=== PATIENT | female | born 1970 | race Hispanic/Latino ===

== ENCOUNTER 2016-06-17 13:15 | Outpatient (CLI) | payer BC ==
--- NOTE | 2016-06-18 09:04 | Cat Scan Report ---
CT ABDOMEN AND PELVIS WITHOUT CONTRAST: HISTORY: Abdominal pain. COMPARISON: 12/31/15. FINDINGS: Previous ventral wall hernia repair is again noted. There is a recurrent hernia along the inferior border of the mesh in the region of the umbilicus. The defect has a 4.1 cm neck and contains fat. The hernia sac measures approximately 5 x 7 cm. No bowel loops or inflammatory changes. Please correlate with the images. Normal liver, biliary system, pancreas, spleen, kidneys, adrenal glands, aorta, bowel loops, appendix, uterus, adnexa and bladder. Essure devices are noted. There is no evidence for ascites, adenopathy or acute inflammation. Heart size is normal. The visualized lung bases are clear. IMPRESSION: Recurrent hernia along the inferior border of the previous ventral wall repair. Please correlate with the images.
== END 2016-06-17 13:16 | disposition home or self-care (01) ==
LOC: CT 13:15
PROVIDERS: ATTEND Surgery
DX: K42.9 Umbilical hernia without obstruction or gangrene (principal); Z97.5 Presence of (intrauterine) contraceptive device
CPT/HCPCS: 74176

== ENCOUNTER 2016-09-26 06:10 | Day surgery (SDC) | payer BC ==
[~2016-09-26 06:10] MED LIST: ceFAZolin 2 GM in NACL 0.9% 100 ML IV NR
--- NOTE | 2016-09-26 06:38 | Anesthesia Day of Surgery ---
Anesthesia Day of Surgery - Day of Surgery Patient Examined: Yes Patient H&P Reviewed: Yes Patient is NPO: Yes
--- NOTE | 2016-09-26 06:38 | Anesthesia Consultation ---
Anesthesia Consult and Med Hx Date of service: 09/26/16 - Airway Anesthetic Teeth Evaluation: Good ROM Head & Neck: Adequate Mental/Hyoid Distance: Adequate Mallampati Class: Class II Intubation Access Assessment: Probably Good - Pulmonary Exam CTA: Yes - Cardiac Exam Cardiac Exam: RRR - Pre-Operative Health Status ASA Pre-Surgery Classification: ASA1 Proposed Anesthetic Plan: General - Pulmonary Hx Smoking: No Hx Sleep Apnea: No - Other Systems Hx Cancer: No
[2016-09-26] MEDS ORDERED: PEPCID PO NR (07:00)
[2016-09-26] MEDS ORDERED: LACTATED RINGERS 1,000 ML IV SCH (07:00)
[2016-09-26] MEDS ORDERED: VERSED IV NR (07:00)
[2016-09-26] MEDS ORDERED: ZOFRAN IV PRN (07:02)
[2016-09-26] MEDS ORDERED: NORCO 5/325 PO PRN (07:02)
[2016-09-26] MEDS ORDERED: MARCAINE 0.25% INFILTRATI ONE ×3 (07:28→08:20)
[2016-09-26] MEDS ORDERED: XYLOCAINE MPF 2% ONE (07:41)
[2016-09-26] MEDS ORDERED: ZEMURON IV ONE (07:41)
[2016-09-26] MEDS ORDERED: DIPRIVAN 10 MG/ML IV ONE (07:42)
[2016-09-26] MEDS ORDERED: SUBLIMAZE ONE (07:42)
[2016-09-26] MEDS ORDERED: DECADRON ONE (07:47)
[2016-09-26] MEDS ORDERED: ZOFRAN ONE ×2 (07:47→11:37)
[2016-09-26] MEDS ORDERED: ANCEF/STERILE WATER 2 GM/20 ML IV NR (08:00)
[2016-09-26] MEDS ORDERED: NACL 0.9% IR ONE (08:20)
[2016-09-26] MEDS ORDERED: DILAUDID ONE (08:28)
[2016-09-26] MEDS ORDERED: TORADOL ONE (10:03)
[2016-09-26] MEDS ORDERED: NACL 0.9% 1000 ML 1,000 ML ONE (10:23)
--- NOTE | 2016-09-26 10:25 | Post Operative Note ---
Pre-op diagnosis: Recurrent ventral hernia with inacr. omentum Post-op diagnosis: same Findings: Rec ventral hernia,omental adhesions + Procedure: Laparoscopic mesh repair rec incarc. ventral hernia Anesthesia: GETA Surgeon: LINDA MAIN Estimated blood loss: minimal Pathology: list (expalnted mesh) Specimen disposition: to lab Condition: stable Disposition: PACU
--- NOTE | 2016-09-26 10:28 | Discharge Summary ---
Short Stay Discharge Plan Weight Bearing Status: Full Weight Bearing Diet: regular Wound: keep clean and dry (remove dressings in 09/28 - abd binder at all times) Follow up with: BETTYE MONTALVO MD [Primary Care Provider] - 7 Days Prescriptions: Ondansetron [Zofran TAB] 4 mg PO Q8HR PRN #20 tablet PRN Reason: Nausea oxyCODONE /ACETAMINOPHEN [Percocet 5/325] 1 tab PO Q4HR PRN #30 tab PRN Reason: Pain, Moderate (4-6) traMADol [Ultram 50 MG tab] 50 mg PO Q4HR PRN #20 tablet PRN Reason: Pain
[2016-09-26] MEDS ORDERED: NARCAN 0.4 MG/1 ML ONE (10:49)
[2016-09-26] MEDS ORDERED: ROBINUL ONE ×2 (10:51→10:54)
[2016-09-26] MEDS ORDERED: NEOSTIGMINE ONE (10:54)
--- NOTE | 2016-09-26 11:03 | Post Anesthesia Evaluation ---
- Post Anesthesia Evaluation Patient Participated: Yes Airway Patent: Yes Stable Respiratory Function: Yes Temp > 96.8F: Yes Pain Manageable: Yes Adequeate Hydration: Yes Anesthesia Complications: No Block Receding Appropriately: Not Applicable
[2016-09-26] MEDS: DILAUDID IV PRN ×3 (11:40→12:00)
--- NOTE | 2016-09-26 13:17 | Operative Report ---
PREOPERATIVE DIAGNOSIS: Recurrent incarcerated ventral/incisional hernia with incarcerated omentum. POSTOPERATIVE DIAGNOSIS: Recurrent incarcerated ventral/incisional hernia with incarcerated omentum. OPERATIVE PROCEDURE: Laparoscopic lysis of omental adhesions; partial explantation of the old mesh; and mesh repair of recurrent ventral hernia. ANESTHESIA: General endotracheal. SURGEON: Kendall Valiente M.D. BLOOD LOSS: Minimal. SPECIMENS: Part of explanted mesh. COMPLICATIONS: None. INDICATIONS: A 46-year-old female patient with a BMI of 34, underwent laparoscopic mesh repair of ventral hernia by pa in 11/2015. She started noticing signs of discomfort and swelling 3-4 months ago. There is clinical evidence of recurrence confirmed by a CT scan with omentum in it. She was brought in for laparoscopy and repair of the recurrent hernia. FINDINGS: The previously placed proceed mesh has unraveled at the lower margin of the hernia repair and the recurrence was noted at the lower end, the defect measuring 3 cm x 3.5 cm. Part of the omentum as herniated into it, but the omentum was viable. Superiorly broad band of omentum was adherent to the mesh. No bowel adhesions were noted to the mesh. Visualized part of the liver and stomach and small intestine and colon appeared normal. No inguinal hernia evident. DESCRIPTION OF PROCEDURE: After satisfactory induction of general endotracheal anesthesia, abdomen was prepped and draped. Left upper quadrant incision was made through the scar of previous trocar placement and a Veress needle was inserted in the peritoneal cavity. After adequate carbon dioxide insufflation up to 15 mmHg, an 11 mm trocar was inserted. Through this, a 5 mm 30-degree angle scope was placed and under direct visualization, a left mid lateral in the left lower quadrant 5 mm ports were placed. Camera was changed to the central port and the omental adhesions were taken down using Harmonic for hemostasis. The incarcerated omentum was released as well. Care was taken not to cause any injury to bowel loops. All the omental adhesions were taken down. These were carefully inspected and hemostasis was quite adequate. Minimal blood clots were suctioned out. Part of the mesh was protruding into the defect was from the fascia and this part of the mesh was removed using an EndoCatch bag. The defect was closed with 3 interrupted 0 Vicryl sutures using an Endoclose needle through a small incision above the umbilicus. This approximated the defect as much as possible and new mesh that was a Ventralight. A 6 inches x 8 inches mesh was used for this purpose. At four corners 0 Vicryl sutures were placed, this was placed on the polypropylene aspect of the mesh. The mesh was moistened and inserted through the 11 mm trocar. Suture passer needle was inserted at the previously identified sites and the anterior abdominal wall and the Vicryl sutures were pulled up and the mesh was securely tied. Then, the mesh was anchored to the fascia using an outer row and inner row of CapSure type of tackers. There was no redundancy or tension on the mesh and hemostasis was quite adequate. Desufflation during the placement of the mesh, the intra-abdominal pressure was lowered to 10. Desufflation was done. All the trocars were removed under direct visualization. The supraumbilical incision and the trocar sites incisions were all closed with Monocryl sutures. The other incisions were approximated with Steri-Strips. Bulky dressings were placed over the umbilical area and an abdominal binder was placed. There was minimal blood loss. She tolerated the procedure well and was transferred to postanesthesia care unit in satisfactory condition. JOB# [id number] ARMINDA/ALLIE
[2016-09-26] MEDS ORDERED: PERCOCET 5/325 PO PRN (14:04)
[2016-09-26 19:06] VITALS: BP 138/78
== END 2016-09-26 14:45 | disposition home or self-care (01) ==
LOC: OR 06:10
PROVIDERS: ATTEND Surgery
DX: K43.0 Incisional hernia with obstruction, without gangrene (principal); K66.0 Peritoneal adhesions (postprocedural) (postinfection); Z87.442 Personal history of urinary calculi; Z98.890 Other specified postprocedural states; Z88.8 Allergy status to other drugs, medicaments and biological substances; Z91.040 Latex allergy status
CPT/HCPCS: 49657; 81025; 88305; C1781; J0690; J1100; J1170; J1885; J2250; J2310; J2405; J2704; J3010; J7030; J7120; J2710

== ENCOUNTER 2019-05-18 15:16 | Outpatient (CLI) | payer BC ==
--- NOTE | 2019-05-18 16:15 | Mammography Report ---
DIGITAL SCREENING MAMMOGRAM WITH CAD, 05/18/2019 INDICATION: Routine screening mammography. TECHNIQUE: Digital bilateral 2D mammography was obtained in the craniocaudal and mediolateral obliq ue projections. This examination was interpreted with the benefit of Computer-Aided Detection analysi s. COMPARISON: FINDINGS: Breast Density: There is no evidence of dominant mass, suspicious calcifications or architectural distortion in eithe r breast. IMPRESSION: Follow up recommendation: Routine yearly A "normal" or negative report should not discourage follow up or biopsy of a clinically significant f inding. A written summary of these findings will be mailed to the patient. The patient will be entered into a mammography reporting system which will generate a reminder letter for the patient's next appointmen t at the appropriate interval. The [employer] recommends yearly mammograms starting at age 40 and continuing as l abilio as a woman is in good health. Breast MRI is recommended for women with an approximate 20-25% or greater lifetime risk of breast cancer, including women with a strong family history of breast or ova kirby cancer or who have been treated for Hodgkin's disease. DIGITAL SCREENING MAMMOGRAM WITH CAD, 05/18/2019 INDICATION: Routine screening mammography. TECHNIQUE: Digital bilateral 2D mammography was obtained in the craniocaudal and mediolateral obliq ue projections. This examination was interpreted with the benefit of Computer-Aided Detection analysi s. COMPARISON: 03/13/2015 FINDINGS: Breast Density: The breasts are almost entirely fatty. There is no evidence of dominant mass, suspicious calcifications or architectural distortion in eithe r breast. IMPRESSION: No mammographic evidence of malignancy. Follow up recommendation: Routine yearly BI-RADS Category 1: Negative. A "normal" or negative report should not discourage follow up or biopsy of a clinically significant f inding. A written summary of these findings will be mailed to the patient. The patient will be entered into a mammography reporting system which will generate a reminder letter for the patient's next appointmen t at the appropriate interval. The [employer] recommends yearly mammograms starting at age 40 and continuing as l abilio as a woman is in good health. Breast MRI is recommended for women with an approximate 20-25% or greater lifetime risk of breast cancer, including women with a strong family history of breast or ova kirby cancer or who have been treated for Hodgkin's disease. Signer Name: Hill Lofton MD Signed: 05/18/2019 4:10 PM Workstation Name: [id number]
== END 2019-05-18 15:17 | disposition home or self-care (01) ==
LOC: MAMMO 15:16
PROVIDERS: ATTEND Obstetrics & Gynecology
DX: Z12.31 Encounter for screening mammogram for malignant neoplasm of breast (principal)
CPT/HCPCS: 77067

== ENCOUNTER 2020-02-20 07:04 | Outpatient (CLI) | payer BC ==
--- NOTE | 2020-02-20 09:24 | Ultrasound Report ---
ULTRASOUND ABDOMEN, COMPLETE INDICATION: ABDOMINAL PAIN. COMPARISON: CT abdomen pelvis 06/17/2016. FINDINGS: Pancreas: No significant abnormality. Abdominal Aorta: No significant abnormality. IVC: No significant abnormality. Liver: The liver measures 16.5 cm in length. No significant abnormality. Normal hepatopedal blood fl ow in the main portal vein. Gallbladder: No significant abnormality. Bile ducts: No significant abnormality. Common bile duct measures 3.9 mm. Kidneys: Right: 9.9 cm in length. Mild diffuse cortical thinning is noted throughout the right kidn ey. No focal lesion or hydronephrosis. Left: 10.6 cm in length. No significant abnormality. Spleen: The spleen is borderline in size measuring 13.7 cm in length.. Free fluid: None. Additional Findings: None. IMPRESSION: No acute abnormality. Mild cortical thinning in the right kidney. Borderline splenomegaly.. ULTRASOUND PELVIS COMPLETE INDICATION / CLINICAL INFORMATION: ABDOMINAL PAIN. TECHNIQUE: Transabdominal. Duplex Color Doppler used: Yes. COMPARISON: CT abdomen pelvis to 717 FINDINGS: UTERUS: Anteverted - Appearance (if present): No significant abnormality. - Size in cm (if present): 8.1 x 4.1 x 5.4. - Endometrial Complex (if present): No significant abnormality.. Thickness in cm (if measured) = 1.4 - Mass lesions: None. - Additional findings: None. RIGHT ADNEXA: No significant ovarian cyst or mass. Normal color Doppler blood flow. LEFT ADNEXA: No significant ovarian cyst or mass. Normal color Doppler blood flow. URINARY BLADDER: No significant abnormality. FREE FLUID: None. ADDITIONAL FINDINGS: The technologist notes a coil in the right fallopian tubule near the uterine fun dus. Essure device IMPRESSION: No significant abnormality. Signer Name: Otoniel Bernstein Jr, MD Signed: 02/20/2020 9:19 AM Workstation Name: [id number]
== END 2020-02-20 07:05 | disposition home or self-care (01) ==
LOC: US 07:04
PROVIDERS: ATTEND Nurse Practitioner
DX: N28.89 Other specified disorders of kidney and ureter (principal)
CPT/HCPCS: 76700; 76856

== ENCOUNTER 2021-08-06 15:25 | Emergency (ER) | payer OTHER, BC ==
[2021-08-06 15:55] VITALS: BP 143/79
[2021-08-06] MEDS ORDERED: TETANUS,DIPH,PERTUSS(ACELL) VACCINE 0.5 ML SYRINGE IM ONE (16:12)
--- NOTE | 2021-08-06 16:12 | Emergency Department Report ---
ED General Adult HPI - General Chief complaint: Medical Clearance Stated complaint: WORK INJURY PUI?: No Time Seen by Provider: 08/06/21 15:59 Source: patient, RN notes reviewed, old records reviewed Mode of arrival: Ambulatory Limitations: No Limitations - History of Present Illness Initial comments: The patient is a pleasant 50-year-old female who is right-hand dominant, who states that she is not , presenting to the ER today with a complaint of accidental scalpel injury to the left lateral superficial aspect of her hand. Patient works in the cardiac catheterization lab, and believes that she was accidentally stuck with a scalpel, uncertain if there were any blood products on the scalpel. It is not known if the source patient is HIV positive, or hepatitis positive. The patient is not up-to-date on tetanus vaccination. The patient is referred to the emergency room for sharps related injury. The patient states that she washed her hands very thoroughly with soap and water for at least 10 minutes. She denies additional injuries and complaints. Patient specifically reports that she was not stabbed or wounded by a hollow needle. She thinks the blade is an 11 blade but is not sure -: This afternoon Location: left, upper extremity Severity scale (0 -10): 0 Improves with: none Worsens with: none Associated Symptoms: denies other symptoms - Related Data Home Medications Medication Instructions Recorded Confirmed Last Taken Ibuprofen [Motrin 800 MG tab] 800 mg PO Q8HR PRN 11/02/15 09/17/16 2 Weeks Ago ~11/06/15 Acetaminophen [Acetaminophen TAB] 325 mg PO Q6HR PRN 11/20/15 09/17/16 11/13/15 Previous Rx's Medication Instructions Recorded Last Taken Type Ondansetron [Zofran TAB] 4 mg PO Q8HR PRN #20 tablet 09/26/16 Unknown Rx oxyCODONE /ACETAMINOPHEN [Percocet 1 tab PO Q4HR PRN #30 tab 09/26/16 Unknown Rx 5/325] traMADoL [Ultram 50 MG tab] 50 mg PO Q4HR PRN #20 tablet 09/26/16 Unknown Rx Allergies Allergy/AdvReac Type Severity Reaction Status Date / Time latex Allergy Itching Verified 08/06/21 15:28 metoclopramide HCl AdvReac Unknown Verified 08/06/21 15:28 [From Reglan] ED Review of Systems ROS: Stated complaint: WORK INJURY Other details as noted in HPI Constitutional: see HPI Eyes: as per HPI ENT: as per HPI Respiratory: see HPI Cardiovascular: as per HPI Gastrointestinal: as per HPI Genitourinary: as per HPI Musculoskeletal: as per HPI Skin: as per HPI, other (Superficial injury to left lateral hand) ED Past Medical Hx - Past Medical History Hx Kidney Stones: Yes Hx HIV: No - Social History Smoking Status: Never Smoker - Medications Home Medications: Home Medications Medication Instructions Recorded Confirmed Last Taken Type Ibuprofen [Motrin 800 MG tab] 800 mg PO Q8HR PRN 11/02/15 09/17/16 2 Weeks Ago History ~11/06/15 Acetaminophen [Acetaminophen TAB] 325 mg PO Q6HR PRN 11/20/15 09/17/16 11/13/15 History Ondansetron [Zofran TAB] 4 mg PO Q8HR PRN #20 tablet 09/26/16 Unknown Rx oxyCODONE /ACETAMINOPHEN [Percocet 1 tab PO Q4HR PRN #30 tab 09/26/16 Unknown Rx 5/325] traMADoL [Ultram 50 MG tab] 50 mg PO Q4HR PRN #20 tablet 09/26/16 Unknown Rx ED Physical Exam - General Limitations: No Limitations General appearance: alert, in no apparent distress - Head Head exam: Present: atraumatic, normocephalic - Eye Eye exam: Present: normal appearance, EOMI. Absent: nystagmus - ENT ENT exam: Present: normal exam, normal orophraynx, mucous membranes moist, normal external ear exam - Neck Neck exam: Present: normal inspection, full ROM. Absent: tenderness, mening ismus - Respiratory Respiratory exam: Present: normal lung sounds bilaterally. Absent: respiratory distress, wheezes, rales, rhonchi, stridor, decreased breath sounds - Cardiovascular Cardiovascular Exam: Present: regular rate, normal rhythm, normal heart sounds. Absent: bradycardia, tachycardia, irregular rhythm, systolic murmur, diastolic murmur, rubs, gallop - GI/Abdominal GI/Abdominal exam: Present: soft. Absent: distended, tenderness, guarding, rebound, rigid, pulsatile mass - Extremities Exam Extremities exam: Present: full ROM, other (2+ pulses noted to the bilateral upper extremities. There is no long bony tenderness. The muscular compartments are soft). Absent: normal inspection (There is a superficial punctate wounds noted to the left lateral hand.) - Back Exam Back exam: Present: normal inspection, full ROM. Absent: tenderness, CVA tenderness (R), CVA tenderness (L), paraspinal tenderness, vertebral tenderness - Neurological Exam Neurological exam: Present: alert, other (There is no facial droop. The tongue is midline. EOMI. 5-5 strength in 4 extremities) - Psychiatric Psychiatric exam: Present: normal affect, normal mood - Skin Skin exam: Present: warm, abrasion ED Course Vital Signs 08/06/21 15:55 Temperature 98.0 F Pulse Rate 89 Respiratory 16 Rate Blood Pressure 143/79 [Right] O2 Sat by Pulse 99 Oximetry - Reevaluation(s) Reevaluation #1: 08/06/21 18:56 Rapid HIV and rapid hepatitis panels negative for source patient's ([id number]). Patient endorses readiness for discharge. Return precautions reviewed. All questions answered ED Medical Decision Making - Lab Data Vital Signs 08/06/21 15:55 Temperature 98.0 F Pulse Rate 89 Respiratory 16 Rate Blood Pressure 143/79 [Right] O2 Sat by Pulse 99 Oximetry - Medical Decision Making Differential diagnosis, including but not limited to: Superficial left hand abrasion, work-related injury, encounter for medical screening examination Assessment and plan: 50-year-old female presenting with work-related scalpel injury to left lateral hand. This is a low risk wound, as she was not punctured with a hollow needle, she washed her arm and hand very thoroughly with thorough soap and water, and there is no evidence of vascular injury at this time. I advised the patient that this is a low risk injury in terms of risk of acquisition of blood-borne diseases. I did offer the patient initiation of postexposure prophylaxis, through shared decision making, she elects to forego postexposure prophylaxis which I think is reasonable. Inpatient team have coordinated acquisition of rapid diagnostics on source patient, including rapid hepatitis and HIV panels. Patient is electing to wait in the emergency room pending results of these panels. I have updated the patient. Critical care attestation.: If time is entered above; I have spent that time in minutes in the direct care of this critically ill patient, excluding procedure time. ED Disposition Clinical Impression: Encounter for medical screening examination Puncture wound of left hand Qualifiers: Encounter type: initial encounter Foreign body presence: without foreign body Qualified Code(s): S61.432A - Puncture wound without foreign body of left hand, initial encounter Disposition: 01 HOME / SELF CARE / HOMELESS Is pt being admited?: No Does the pt Need Aspirin: No Condition: Good Instructions: Stab Wound, Wound Care, Adult Additional Instructions: Please continue local wound care. Please make certain to follow-up with medical records department to ascertain HIV and hepatitis status on source patient. Patient has received a tetanus vaccination here in the emergency room. Please return to the emergency room right away with new pain, worsened pain, migration of pain, projectile vomiting, change in mental status, confusion, inability tolerate liquid feeds, new, worsened or different symptoms not present on the initial emergency room evaluation Referrals: [facility] [Provider Group] - 3-5 Days
== END 2021-08-06 19:30 | disposition home or self-care (01) ==
LOC: ED 15:25
DX: S61.432A Puncture wound without foreign body of left hand, initial encounter (principal); N20.0 Calculus of kidney; Z91.040 Latex allergy status; Z91.09 Other allergy status, other than to drugs and biological substances; W26.8XXA Contact with other sharp object(s), not elsewhere classified, initial encounter; Y93.89 Activity, other specified; Y92.89 Other specified places as the place of occurrence of the external cause; Y99.0 Civilian activity done for income or pay
CPT/HCPCS: 90471; 90715; 99282

== ENCOUNTER 2021-08-20 12:20 | Outpatient (CLI) | payer BC ==
[2021-08-20 13:13] LABS: Hematocrit 37.8 % (30.3-42.9); Hemoglobin 12.6 gm/dl (10.1-14.3); Mean Corpuscular HGB Conc 33 % (30-34); Mean Corpuscular Volume 86 fl (79-97); Platelet Count 337 K/mm3 (140-440); Red Blood Count 4.39 M/mm3 (3.65-5.03); Red Cell Distribution Width 14.5 % (13.2-15.2)
[2021-08-20 13:24] LABS: Alanine Aminotransferase 13 units/L (7-56); Albumin 4.3 g/dL (3.9-5); Blood Urea Nitrogen 10 mg/dL (7-17); Calcium 9.5 mg/dL (8.4-10.2); Hemolysis Index 6
[2021-08-20 13:29] LABS: BUN/Creatinine Ratio 14
== END 2021-08-20 12:21 | disposition home or self-care (01) ==
LOC: LAB 12:20
PROVIDERS: ATTEND Obstetrics & Gynecology
DX: Z13.0 Encounter for screening for diseases of the blood and blood-forming organs and certain disorders involving the immune mechanism (principal); Z13.29 Encounter for screening for other suspected endocrine disorder; Z13.1 Encounter for screening for diabetes mellitus
CPT/HCPCS: 36415; 80053; 82607; 82747; 83036; 84436; 84443; 84480; 85027

== ENCOUNTER 2021-10-02 07:20 | Outpatient (CLI) | payer BC ==
[2021-10-02 08:04] LABS: Basophils # (Auto) 0.1 K/mm3 (0.0-0.1); Basophils % (Auto) 0.7 % (0.0-1.8); Eosinophils # (Auto) 0.1 K/mm3 (0.0-0.4); Eosinophils % (Auto) 1.7 % (0.0-4.3); Hematocrit 39.1 % (30.3-42.9); Hemoglobin 12.8 gm/dl (10.1-14.3); Lymphocytes # (Auto) 1.4 K/mm3 (1.2-5.4); Lymphocytes % (Auto) 18.9 % (13.4-35.0); Mean Corpuscular HGB Conc 33 % (30-34); Mean Corpuscular Volume 85 fl (79-97); Monocytes # (Auto) 0.5 K/mm3 (0.0-0.8); Monocytes % (Auto) 6.8 % (0.0-7.3); Platelet Count 339 K/mm3 (140-440); Red Cell Distribution Width 14.6 % (13.2-15.2)
--- NOTE | 2021-10-02 08:12 | Cat Scan Report ---
CT head/brain wo con INDICATION: HEADACHE UPON AWAKENING. TECHNIQUE: All CT scans at this location are performed using CT dose reduction for ALARA by means of automated e xposure control. COMPARISON: None available. FINDINGS: There is no evidence of hemorrhage, hydrocephalus, brain edema, or mass effect/mass lesion. There is overall normal brain formation and brain volume for the patient's age. Ventricular and cisternal/sulc al size is normal for age. The included paranasal sinuses and mastoid air cells are clear. The orbits appear unremarkable. IMPRESSION: 1. No acute findings. Signer Name: Salomón Larson MD Signed: 10/02/2021 8:08 AM Workstation Name: [id number]
[2021-10-02 08:24] LABS: Erythrocyte Sedimentation Rate 41 mm/Hr (0-20)
[2021-10-02 08:26] LABS: Alanine Aminotransferase 13 units/L (7-56); Albumin 4.3 g/dL (3.9-5); Blood Urea Nitrogen 17 mg/dL (7-17); Calcium 9.4 mg/dL (8.4-10.2); Hemolysis Index 8
[2021-10-02 08:30] LABS: BUN/Creatinine Ratio 28
== END 2021-10-02 07:21 | disposition home or self-care (01) ==
LOC: CT 07:20
PROVIDERS: ATTEND Internal Medicine
DX: G44.201 Tension-type headache, unspecified, intractable (principal)
CPT/HCPCS: 36415; 70450; 80053; 85025; 85652; 86140

== ENCOUNTER 2021-10-08 05:57 | Day surgery (SDC) | payer BC ==
[2021-10-08] MEDS ORDERED: ceFAZolin/STERILE WATER 2 GM/20 ML SYRINGE IV NR (06:00)
[2021-10-08] MEDS ORDERED: LACTATED RINGERS 1,000 ML ONE (06:10)
[2021-10-08] MEDS ORDERED: BACTERIOSTATIC SODIUM CHLORIDE 0.9% 30 ML VIAL INFILTRATI ONE (07:08)
[2021-10-08] MEDS ORDERED: LIDOCAINE MPF (2%) 20 MG/1 ML VIAL 5 ML ONE (07:16)
[2021-10-08] MEDS ORDERED: ONDANSETRON 4 MG/2 ML INJ ONE (07:16)
[2021-10-08] MEDS ORDERED: propofoL 200 MG/20 ML VIAL IV ONE ×3 (07:17→08:56)
[2021-10-08] MEDS ORDERED: fentaNYL 100 MCG/2 ML INJ ONE (07:17)
[2021-10-08] MEDS ORDERED: SODIUM BICARBONATE 2 MEQ/2 ML SYRINGE ONE (07:26)
[2021-10-08] MEDS ORDERED: LIDOCAINE (1%) 10 MG/1 ML VIAL 20 ML MDV ONE (07:26)
[2021-10-08] MEDS ORDERED: BUPIVACAINE/PF (0.5%) 5 MG/1 ML 10 ML VIAL INFILTRATI ONE ×3 (07:26→08:43)
--- NOTE | 2021-10-08 07:33 | Anesthesia Day of Surgery ---
Anesthesia Day of Surgery - Day of Surgery Patient Examined: Yes Patient H&P Reviewed: Yes Patient is NPO: Yes
--- NOTE | 2021-10-08 07:34 | Anesthesia Consultation ---
Anesthesia Consult and Med Hx Date of service: 10/08/21 - Airway Anesthetic Teeth Evaluation: Good ROM Head & Neck: Adequate Mental/Hyoid Distance: Adequate Mallampati Class: Class II Intubation Access Assessment: Good - Pulmonary Exam CTA: Yes - Cardiac Exam Cardiac Exam: RRR - Pre-Operative Health Status ASA Pre-Surgery Classification: ASA1 Proposed Anesthetic Plan: MAC - Pulmonary Hx Smoking: No Hx Sleep Apnea: No - Central Nervous System Hx Psychiatric Problems: No - Other Systems Hx Cancer: No
[2021-10-08] MEDS ORDERED: MIDAZOLAM 2 MG/2 ML INJ IV NR (08:00)
[2021-10-08] MEDS ORDERED: LACTATED RINGERS 1,000 ML IV SCH (08:00)
[2021-10-08] MEDS ORDERED: SODIUM CHLORIDE 0.9% IRR 1,500 ML BOTTLE IR ONE (08:44)
--- NOTE | 2021-10-08 09:33 | Short Stay Summary ---
Short Stay Documentation Date of service: 10/08/21 Narrative H&P: See H&P - History H&P: obtained from office - Allergies and Medications Current Medications: Allergies latex Allergy (Verified 10/04/21 12:49) Itching metoclopramide HCl [From Reglan] Adverse Reaction (Verified 10/04/21 12:49) Unknown HALLUCINATIONS Home Medications Medication Instructions Recorded Confirmed Last Taken Type Butalb/Acetaminophen/Caffeine 1 each PO PRN PRN 10/04/21 10/04/21 Unknown History [Vcbknq-Syyspyas-Bixr 50-325-40] predniSONE [Deltasone] 20 mg PO TID 10/04/21 10/04/21 Unknown History Active Medications Cefazolin Sodium (Cefazolin/Sterile Water 2 Gm/20 Ml Syringe) 2 gm IV PREOP NR Stop: 10/08/21 23:59 Lactated Ringer's (Lactated Ringers) 1,000 mls @ 100 mls/hr IV DIRECT JOHN Last Admin: 10/08/21 07:49 Dose: 100 mls/hr Midazolam HCl (Midazolam 2 Mg/2 Ml Inj) 2 mg IV PREOP NR Stop: 10/08/21 23:59 Last Admin: 10/08/21 07:45 Dose: 2 mg - Brief post op/procedure progress note Date of procedure: 10/08/21 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 Post-op diagnosis: same Procedure: Right Temporal Artery Biopsy Anesthesia: MAC, local Surgeon: JENNI OROSCO Estimated blood loss: minimal Pathology: list (Right temporal artery) Specimen disposition: to lab Condition: stable - Disposition Condition at discharge: Good Disposition: 01 HOME / SELF CARE / HOMELESS Short Stay Discharge Plan Wound: open to air, keep clean and dry, other (Okay to shower and wash the wound with soap and water but do not soak in water for 2 weeks.) Follow up with: JENNI OROSCO MD [Staff Physician] - 14 Days Prescriptions: oxyCODONE /ACETAMINOPHEN [Percocet 5/325] 1 tab PO Q4HR #24 tab
--- NOTE | 2021-10-08 09:42 | Operative Report ---
Operative Report Operative Report: Date of Procedure: 10/08/2021 Pre-operative Diagnosis: Possible Giant Cell Arteritis Post-operative Diagnosis: Same Procedure(s): 1. Right Temporal Artery Biopsy Surgeon: Obdulio Baptiste M.D. Cardiovascular Or Nurse: None Anesthesia: Local/MAC EBL: Minimal Counts: Correct Complications: None Condition: Stable Findings: The right temporal artery did not appear significantly inflamed or friable. Specimen: Approximately 7 cm of the right temporal artery was sent to pathology. Indication: The patient is a 51-year-old female who presented with complaints of severe headaches associated with visual changes in her right eye with seeing halos as well as tenderness over her right temporal artery. She had a slightly elevated ESR and has been started on prednisone which has resulted in slight relief. She is in need of a temporal artery biopsy to determine whether or not she has giant cell arteritis. The patient has been given the risk, benefits, and alternative procedures and consented to the procedure. Description of Procedure: The patient was brought to the operating room and laid in supine position. After a timeout was performed the patient was adequately sedated and her right face was prepped and draped in normal sterile fashion. 0.5% Marcaine was then used to anesthetize the area and then a longitudinal incision was created in front of the right tragus and extended slightly cranially using a 15 blade. Sharp dissection using Metzenbaum scissors was used to carry the dissection down to the temporal artery which was identified visually as well as with interrogation with a Doppler. The artery was dissected at the base as well as at the branching point to ensure that adequate length of the artery was taken for biopsy. Once I had dissected adequate length I ligated the artery at the base as well as at the distal aspect of the branches. I then transected the artery with approximately 7 cm of length and passed this off as a specimen. I ensured that adequate hemostasis was achieved and then I closed the incision in 2 layers using 3-0 Vicryl in running fashion the deep dermal layer and 4-0 Monocryl in running fashion the subcuticular layer and then dressed the wound with Dermabond. The patient tolerated the procedure well. All sponge, needle, and instrument counts were correct. The patient was transported to the recovery area in stable condition.
[2021-10-08] MEDS ORDERED: HYDROmorphone 0.5 MG/0.5 ML INJ IV PRN (10:00)
[2021-10-08 11:24] VITALS: BP 142/81
--- NOTE | 2021-10-08 16:10 | Post Anesthesia Evaluation ---
- Post Anesthesia Evaluation Patient Participated: Yes Airway Patent: Yes Stable Respiratory Function: Yes Nausea/Vomiting: No Temp > 96.8F: Yes Pain Manageable: Yes Adequeate Hydration: Yes Anesthesia Complications: No Block Receding Appropriately: Not Applicable Patient on Ventilator: No
== END 2021-10-08 10:45 | disposition home or self-care (01) ==
LOC: OR 05:57
PROVIDERS: ATTEND Surgery Vascular Surgery
DX: M31.6 Other giant cell arteritis (principal); Z79.899 Other long term (current) drug therapy; Z91.040 Latex allergy status; Z88.8 Allergy status to other drugs, medicaments and biological substances; Z98.890 Other specified postprocedural states
CPT/HCPCS: 37609; 88304; J0690; J2250; J2405; J2704; J3010; J3490; J7120; 88311